=== PATIENT | male | born 1955 | race Caucasian/White ===

== ENCOUNTER → 2018-11-23 | Outpatient (CLI) | payer OTHER ==
--- NOTE | 2018-11-23 11:41 | KCIC ---
PA view the chest with left RIBS HISTORY: History of pleurodynia, fall, hit posterior left ribs. COMPARISON: None available Findings/ impression: The cardiomediastinal silhouette grossly appears unremarkable. No acute infiltrate or visualized pneumothorax. Minimal left lung base atelectasis. Minimal displaced fracture of the left posterior 11th rib, and anterolateral left 10th rib. Correlate for point tenderness. Electronically signed by: Hemant Moreno MD (11/23/2018 11:37 AM) [facility]
== END | disposition home or self-care (01) ==
LOC: KCIC 09:01
PROVIDERS: ATTEND Clinical Nurse Specialist Family Health
DX: S22.42XA Multiple fractures of ribs, left side, initial encounter for closed fracture (principal); J98.11 Atelectasis; X58.XXXA Exposure to other specified factors, initial encounter; Y93.89 Activity, other specified; Y92.89 Other specified places as the place of occurrence of the external cause; Y99.8 Other external cause status
CPT/HCPCS: 71101